=== PATIENT | female | born 2000 | race Caucasian/White ===

== ENCOUNTER 2019-08-26 17:39 | Emergency (ER) | payer OTHER ==
[~2019-08-26] VITALS: Ht 167.6 cm; Wt 86.2 kg
== END 2019-08-26 20:55 | disposition home or self-care (01) ==
LOC: ED 17:39
DX: F32.9 Major depressive disorder, single episode, unspecified (principal); F41.9 Anxiety disorder, unspecified
CPT/HCPCS: 80053; 80176; 81001; 84443; 84703; 85025; 99284; G0480

== ENCOUNTER 2019-09-08 20:16 | Emergency (ER) | payer OTHER ==
[~2019-09-08] VITALS: Ht 167.6 cm; Wt 86.2 kg
--- OUTSIDE RECORDS SUMMARY | 2019-09-08 20:18 | XMS ---
PreManage Notification: DOUGLAS GARRIDO Security Injection Molding Machine Tender Events No recent Security Events currently on file CRITERIA MET - 6 ED Visits in 6 Months - [facility] - 2 Visits in 30 Days CARE PROVIDERS [facility] 06/22/2017-Current PHONE: Unknown MARIELLE DONAHUE Internal Medicine Current [place] PHONE: Unknown PEDIATRICS, [facility] 04/16/2019-[facility] [place] PHONE: [phone] ALISON SANTIAGO Health Club Attendant/Reiki Practitioner Current [facility] TEAM PHONE: [phone] NEERAJ OROZCO Nurse Practitioner: Family Current PHONE: [phone] Glenny has no Care Guidelines for this patient. EKarine VISIT COUNT (12 MO.) 5 Kwan Forbes 2 Kwan Sky 2 CARISSA Box TOTAL 9 NOTE: Visits indicate total known visits. ED/UCC VISIT TRACKING (12 MO.) 09/08/2019 20:17 CARISSA Robbins [place] TYPE: Emergency COMPLAINT: - POSS OVERDOSE 08/26/2019 17:42 CARISSA Robbins [place] TYPE: Emergency COMPLAINT: - SUICIDAL DIAGNOSES: - Suicidal ideations - Major depressive disorder, single episode, unspecified - Anxiety disorder, unspecified 06/16/2019 22:19 Kwan Tapia [place] TYPE: Emergency DIAGNOSES: - Sprain of unspecified parts of thorax, initial encounter - shortness of breath,chest pain 05/02/2019 23:53 Kwan Vincent [place] TYPE: Emergency DIAGNOSES: - vision issues - Other visual disturbances 04/28/2019 12:19 Kwan [place] Asya Vincent [place] TYPE: Emergency DIAGNOSES: - THROAT PROBLEM - Cellulitis and abscess of mouth 03/16/2019 10:52 Kwan Tapia [place] TYPE: Emergency DIAGNOSES: - fall - Pain in left shoulder 02/02/2019 14:49 Kwan Tapia [place] TYPE: Emergency DIAGNOSES: - flu like symptoms - Streptococcal pharyngitis - Nausea with vomiting, unspecified 01/15/2019 10:39 Kwan Tapia [place] TYPE: Emergency DIAGNOSES: - Female pelvic inflammatory disease, unspecified - ABD PAIN 11/14/2018 23:32 [facility] Tapia [place] TYPE: Emergency DIAGNOSES: - allergic reaction - Unspecified abdominal pain - Dorsalgia, unspecified INPATIENT VISIT TRACKING (12 MO.) No inpatient visits to display in this time frame [email or web address]
[2019-09-09] MEDS ORDERED: IBUPROFEN600 MG PO (05:51)
[2019-09-09] MEDS ORDERED: ACETAMINOPHEN325 M1 PO (05:52)
== END 2019-09-09 10:59 | disposition home or self-care (01) ==
LOC: ED 20:16
DX: T39.312A Poisoning by propionic acid derivatives, intentional self-harm, initial encounter (principal); T39.1X2A Poisoning by 4-Aminophenol derivatives, intentional self-harm, initial encounter; F41.9 Anxiety disorder, unspecified; F32.9 Major depressive disorder, single episode, unspecified; Z91.040 Latex allergy status; Z88.1 Allergy status to other antibiotic agents; Z79.899 Other long term (current) drug therapy
CPT/HCPCS: 80053; 80176; 81001; 84443; 84703; 85025; 99284; G0480